=== PATIENT | female | born 1935 | race Hispanic/Latino ===

== ENCOUNTER 2017-10-02 10:31 | Day surgery (SDC) | payer OTHER ==
[2017-10-02 10:42] VITALS: BMI 27.2
[2017-10-02] MEDS ORDERED: Sodium Chloride 0.9% 1,000 ML IV STA (10:51)
--- NOTE | 2017-10-02 10:53 | ED PDOC ---
Arrival/HPI - General Time Seen by Provider: 10/02/17 10:42 Historian: Patient - History of Present Illness Narrative History of Present Illness (Text): 10/02/17 10:53 is a 81 year old female whose past medical history includes hypertension, depression, arthritis, and kidney stones, who presents to the Emergency department with her complaining of left side kidney stones with associated left sided back pain, which started yesterday. Patient is visiting from [place] on a cruise. She reports that her pain is from kidney stones explaining that she has had kidney stones in the past, which caused her similar pain. She describes the pain as severe. Patient reports increased urinary frequency, and yesterday found blood in her urine. Denies any blood in her stool. Of note she takes Tramadol for Arthritis pain. Time/Duration: 24 hours Symptom Onset: Sudden Symptom Course: Unchanged Severity Level: Severe Context: Other (Cruise) Past Medical History - Provider Review Nursing Documentation Reviewed: Yes Family/Social History - Physician Review Nursing Documentation Reviewed: Yes Family/Social History: No Known Family HX Allergies/Home Meds Allergies/Adverse Reactions: Allergies No Known Allergies Allergy (Verified 10/02/17 10:42) Home Medications: Home Meds Medication Instructions Recorded Confirmed Doxazosin [Cardura] 10/02/17 FLUoxetine [Prozac] 10/02/17 Mirtazapine [Remeron] 30 mg PO 10/02/17 Nadolol/Bendroflumethiazide 10/02/17 [Corzide 40-5 Tablet] Omeprazole [Omeprazole] 10/02/17 Propranolol [Inderal LA] 10/02/17 Ramipril [Altace] 10/02/17 traMADol [Ultram] 10/02/17 Review of Systems - Physician Review All systems were reviewed & negative as marked: Yes - Review of Systems Gastrointestinal: absent: Abdominal Pain Genitourinary Female: Frequency, Hematuria Musculoskeletal: Back Pain Physical Exam Vital Signs Reviewed: Yes Vital Signs Temp Pulse Resp BP Pulse Ox 10/02/17 14:55 97.9 F 63 20 162/100 H 96 10/02/17 13:30 98.1 F 62 19 153/66 H 95 10/02/17 10:49 97 H 18 107/51 L 107 H 10/02/17 10:36 98.3 F 55 L 18 107/51 L 96 Temperature: Afebrile Blood Pressure: Normal Pulse: Bradycardic Respiratory Rate: Normal Appearance: Positive for: Well-Appearing Mental Status: Positive for: Alert and Oriented X 3 - Systems Exam Head: Present: Atraumatic, Normocephalic Pupils: Present: PERRL Extroacular Muscles: Present: EOMI Conjunctiva: Present: Normal Mouth: Present: Moist Mucous Membranes Neck: Present: Normal Range of Motion Respiratory/Chest: Present: Clear to Auscultation, Good Air Exchange. No: Respiratory Distress, Accessory Muscle Use Cardiovascular: Present: Regular Rate and Rhythm, Normal S1, S2. No: Murmurs Abdomen: No: Tenderness, Distention, Peritoneal Signs Back: Present: CVA Tenderness (Left sided CVA tenderness) Upper Extremity: Present: Normal Inspection. No: Cyanosis, Edema Lower Extremity: Present: Normal Inspection. No: Edema Neurological: Present: GCS=15, CN II-XII Intact, Speech Normal Skin: Present: Warm, Dry, Normal Color. No: Rashes Psychiatric: Present: Alert, Oriented x 3, Normal Insight, Normal Concentration Medical Decision Making ED Course and Treatment: 10/02/17 10:53 Impression: Patient is 81 year old female who is complaining of left sided back pain which she believes is due to kidney stones. Differential Diagnosis included but are not limited to: Kidney stones vs. Back strain Plan: --Abdominal and Pelvic CT without PO or IV contrast --EKG --Toradol --IV fluids --Urinalysis -- Reassess and disposition Progress Notes: 10/02/17 10:54 EKG shows sinus bradycardia at 58 BPM with normal axis and intervals. Interpreted by me. 10/02/17 12:[address] without contrast: Creator : Alessandro Glass MD IMPRESSION: Moderate hydronephrosis with perinephric swelling and hydroureter to the level of the urinary bladder with a 6 millimeter obstructive calculus at the left UVJ. 10/02/17 13:19 Case was discussed with Dr. Morse, Urology, who will come in to do a uretal stent. Patient has been NPO since yesterday. UA reviewed. Levaquin was given on cruiseship. Patient is being admitted to [facility] for the procedure and Dr. Morse will rx antibiotics. Given Rocephin IV as per his recommendation. - Lab Interpretations Lab Results: 10/02/17 10:45 10/02/17 10:45 Lab Results 10/02/17 12:20: Urine Color Yellow, Urine Appearance Cloudy, Urine pH 6.0, Ur Specific [place] >= 1.030, Urine Protein 30 H, Urine Glucose (UA) Negative, Urine Ketones Trace H, Urine Blood Large H, Urine Nitrate Negative, Urine Bilirubin Negative, Urine Urobilinogen 0.2, Ur Leukocyte Esterase Small H, Urine RBC Tntc, Urine WBC 5 - 10, Ur Epithelial Cells Many, Urine Bacteria Many 10/02/17 10:45: Sodium 142, Potassium 4.1, Chloride 105, Carbon Dioxide 23, Anion Gap 18, BUN 40 H, Creatinine 1.2, Est GFR ( Amer) 52, Est GFR (Non- Af Amer) 43, Random Glucose 99, Calcium 10.0, Total Bilirubin 0.8, AST 30, ALT 31, Alkaline Phosphatase 63, Total Protein 7.4, Albumin 4.2, Globulin 3.2, Albumin/Globulin Ratio 1.3 10/02/17 10:45: WBC 7.8, RBC 4.03, Hgb 13.1, Hct 37.1, MCV 92.1, MCH 32.5, MCHC 35.3, RDW 12.6, Plt Count 200, MPV 10.6, Gran % 61.9, Lymph % (Auto) 27.3, Mineral % (Auto) 10.4 H, Eos % (Auto) 0.1 L, Baso % (Auto) 0.3, Gran # 4.83, Lymph # ( Auto) 2.1, Mineral # (Auto) 0.8 H, Eos # (Auto) 0.0, Baso # (Auto) 0.02 I have reviewed the lab results: Yes - RAD Interpretation Radiology Orders: 10/02/17 10:52 ABD & PELVIS W/O PO OR IV CONT [CT] Stat 10/02/17 15:21 FLUOROSCOPY UP TO 1 HOUR [RAD] Routine Brazing Machine Operator Automatic: Radiologist - EKG Interpretation Interpreted by ED Physician: Yes Type: 12 lead EKG - Medication Orders Current Medication Orders: Sodium Chloride (Sodium Chloride 0.9%) 1,000 mls @ 100 mls/hr IV .Q10H STA Stop: 10/02/17 20:50 Last Admin: 10/02/17 11:18 Dose: 100 mls/hr eMAR Start Stop Document 10/02/17 11:18 EAR (Rec: 10/02/17 11:19 EAR [id number]) Intravenous Solution Start Date 10/02/17 Start Time 11:19 End Date 10/02/17 End time 12:20 Total Infusion Time 61 Ciprofloxacin (Cipro 200mg/100ml D5w) 100 mls @ 67 mls/hr IVPB Q12 GARRY PRN Reason: Protocol Stop: 10/02/17 23:30 Discontinued Medications Ceftriaxone Sodium (Rocephin 1 Gram Ivpb) 1 gm in 100 mls @ 200 mls/hr IVPB STAT STA PRN Reason: Protocol Stop: 10/02/17 13:52 Last Admin: 10/02/17 13:35 Dose: 200 mls/hr eMAR Start Stop Document 10/02/17 13:35 COMMUNICATIONS ADMINISTRATOR (Rec: 10/02/17 13:35 COMMUNICATIONS ADMINISTRATOR [id number]) Intravenous Solution Start Date 10/02/17 Start Time 13:35 End Date 10/02/17 End time 14:05 Total Infusion Time 30 Ketorolac Tromethamine (Toradol) 30 mg IVP STAT STA Stop: 10/02/17 10:52 Last Admin: 10/02/17 11:18 Dose: 30 mg MAR Pain Assessment Document 10/02/17 11:18 EAR (Rec: 10/02/17 11:18 EAR [id number]) Pain Reassessment Is this a pain reassessment? Yes Sleep Is patient sleeping during reassessment? No Presence of Pain Presence of Pain No Pain Scale Used Pain Scale Used Numeric Location Left, Right or Bilateral Left IVP Administration Document 10/02/17 11:18 EAR (Rec: 10/02/17 11:18 EAR [id number]) Charges for Administration # of IVP Administrations 1 Magnesium Citrate (Citrate Of Mag) 300 ml PO ONCE ONE Stop: 10/02/17 15:24 - Scribe Statement The provider has reviewed the documentation as recorded by the Scribe Chris Mckeon Provider Scribe Attestation: All medical record entries made by the Scribe were at my direction and personally dictated by me. I have reviewed the chart and agree that the record accurately reflects my personal performance of the history, physical exam, medical decision making, and the department course for this patient. I have also personally directed, reviewed, and agree with the discharge instructions and disposition. Disposition/Present on Arrival - Present on Arrival Any Indicators Present on Arrival: No - Disposition Have Diagnosis and Disposition been Completed?: Yes Diagnosis: Kidney stone Disposition: HOSPITALIZED Disposition Time: 12:52 Patient Plan: Admission Condition: GOOD
[2017-10-02 11:07] LABS: BASO # 0.02 K/mm3 (0.0-2.0); BASO % 0.3 % (0.0-3.0); EOS % 0.1 % (1.5-5.0); GRAN # 4.83 (1.4-6.5); GRAN % 61.9 % (50.0-68.0); HEMOGLOBIN 13.1 g/dL (12.0-16.0); LYMPH # 2.1 (1.2-3.4); LYMPH % 27.3 % (22.0-35.0); MEAN CELL VOLUME 92.1 fl (80.0-105.0); MEAN CORPUSCULAR HEMOGLOBIN 32.5 pg (25.0-35.0); MEAN CORPUSCULAR HGB CONC 35.3 g/dl (31.0-37.0); MEAN PLATELET VOLUME 10.6 fl (7.0-11.0); MONO # 0.8 (0.1-0.6); MONO % 10.4 % (1.0-6.0); RBC 4.03 10^6/uL (3.5-6.1); RED CELL DISTRIBUTION WIDTH 12.6 % (11.5-14.5); WHITE BLOOD COUNT 7.8 10^3/ul (4.5-11.0)
[2017-10-02 11:17] LABS: ALB/GLOB RATIO 1.3 (1.1-1.8); ALBUMIN 4.2 g/dL (3.0-4.8)
--- NOTE | 2017-10-02 11:40 | CT ---
PROCEDURE: CT Abdomen and Pelvis without intravenous contrast HISTORY: low back pain r/o kidney stone COMPARISON: None. TECHNIQUE: Technique. Contrast dose: Radiation dose: Total exam DLP = mGy-cm. This CT exam was performed using one or more of the following dose reduction techniques: Automated exposure control, adjustment of the mA and/or kV according to patient size, and/or use of iterative reconstruction technique. FINDINGS: LOWER THORAX: Unremarkable. LIVER: 7 mm left hepatic cyst. No gross lesion or ductal dilatation. GALLBLADDER AND BILE DUCTS: Unremarkable. PANCREAS: Unremarkable. No gross lesion or ductal dilatation. SPLEEN: Unremarkable. ADRENALS: Unremarkable. No mass. KIDNEYS AND URETERS: Moderate hydronephrosis with perinephric swelling and hydroureter to the level of the urinary bladder with a 6 millimeter obstructive calculus at the left UVJ. 11 millimeter nonobstructive calculus in the lower pole of the left kidney. VASCULATURE: Unremarkable. No aortic aneurysm. BOWEL: Unremarkable. No obstruction. No gross mural thickening. APPENDIX: Unremarkable. Normal appendix. PERITONEUM: Unremarkable. No free fluid. No free air. LYMPH NODES: Unremarkable. No enlarged lymph nodes. BLADDER: Unremarkable. REPRODUCTIVE: Unremarkable. BONES: No acute fracture. OTHER FINDINGS: None. IMPRESSION: Moderate hydronephrosis with perinephric swelling and hydroureter to the level of the urinary bladder with a 6 millimeter obstructive calculus at the left UVJ.
[2017-10-02 12:37] LABS: URINE BILIRUBIN NEGATIVE (NEGATIVE); URINE BLOOD LARGE (NEGATIVE); URINE GLUCOSE (UA) NEGATIVE (NEGATIVE); URINE LEUKOCYTE ESTERASE SMALL Leu/uL (NEGATIVE); URINE PROTEIN 30 mg/dL (<30 mg/dL); URINE UROBILINOGEN 0.2 E.U./dL (<1 E.U./dL)
[2017-10-02 12:40] LABS: URINE APPEARANCE CLOUDY (CLEAR); URINE COLOR YELLOW (YELLOW)
--- NOTE | 2017-10-02 12:58 | CARD ---
APPROVED REPORT EKG Measurement Heart [id number] ID [id number] <Conclusion> Sinus bradycardia Otherwise normal ECG
[2017-10-02 13:05] LABS: URINE BACTERIA MANY (NEG); URINE EPITHELIAL CELLS MANY /hpf (0-5); URINE RBC TNTC /hpf (0-2)
[2017-10-02] MEDS ORDERED: Iohexol 240 (50 ml) ONE (13:21)
[2017-10-02] MEDS ORDERED: cefTRIAXone (Rocephin) 1 gm Inj ONE (13:21)
[2017-10-02] MEDS ORDERED: Lidocaine 2% Jelly (Uro-Jet) ONE (13:21)
[2017-10-02] MEDS ORDERED: cefTRIAXone 1 gm 1 GM/100 ML BAG IVPB STA (13:23)
[2017-10-02] MEDS ORDERED: Propofol 10 mg/ml Inj (20 ML) ONE (15:00)
[2017-10-02] MEDS ORDERED: Lidocaine 2% Inj (20ml) ONE (15:02)
[2017-10-02] MEDS ORDERED: Magnesium Citrate Oral SOL (300 ml) PO ONE (15:23)
[2017-10-02] MEDS ORDERED: HYDROmorphone 0.5 mg/0.5 ml ISec IVP PRN (16:09)
[2017-10-02] MEDS ORDERED: Sodium Chloride 0.9% 1,000 ML IV SCH (16:15)
[2017-10-02] MEDS ORDERED: Pneumococcal 23-Valent Vaccine IM ONE (20:46)
[2017-10-02] MEDS ORDERED: PARACETAMOL PO SCH (22:00)
[2017-10-02] MEDS ORDERED: [UNRECOGNIZED DRUG - OTHER] PO SCH (22:00)
[2017-10-02] MEDS ORDERED: Ciprofloxacin 200mg/100ml D5W 100 ML IVPB SCH (22:00)
[2017-10-02 22:28] VITALS: PULSE 65
[2017-10-03 07:38] VITALS: BP 121/62; RESP 18; TEMP 98.5; O2SAT 98
[2017-10-03] MEDS ORDERED: [UNRECOGNIZED DRUG - OTHER] PO SCH (10:00)
[2017-10-03] MEDS ORDERED: OMEPRAZOLE 20 MG PO SCH (10:00)
[2017-10-03] MEDS ORDERED: cefTRIAXone 1 gm 1 GM/100 ML BAG IVPB ONE (10:00)
[2017-10-03] MEDS ORDERED: Propranolol 80 mg ER Cap PO SCH (10:00)
--- NOTE | 2017-10-03 16:03 | PN ---
DATE: 10/03/2017 UROLOGY IMMEDIATE POSTOP NOTE The patient is status post cystoscopy. Vital signs are within normal limits. The patient is feeling much better, much less back pain. All within normal limits. A little blood-tinged urine is noted. The patient is feeling much better in terms of pain. The Urology plan is as follows; 1. We are going to admit the patient overnight. Antibiotics provided. 2. The next step for the patient will be discharge home. She will fly to [place]. 3. urologist there. I have given the patient and her the actual films from procedure. recommendations from Urology standpoint would either be ureteroscopy, lithotripsy or shockwave lithotripsy. At this point, she will be safe to fly. Discussed with the patient at great length. Bob Morse MD
--- NOTE | 2017-10-03 21:15 | HP ---
UROLOGY EMERGENCY ADMISSION REASON FOR ADMISSION: Severe renal colic. HISTORY OF PRESENT ILLNESS: A very pleasant lady. She is 81 years old. She is on a cruise actually and she had to leave the cruise because she was feeling so sick. She is nauseous, vomiting, abdominal pain, severe pain. We found here in the emergency room a severe hydronephrosis secondary to a distal ureteral obstruction. Now, she also has a secondary stone up in her kidney. See the plan listed above. PAST MEDICAL HISTORY AND SURGICAL HISTORY: As listed on the chart. No history of an ID or CVA. SOCIAL HISTORY: She is here with her . She is for almost 60 years. They are visiting from [place]. REVIEW OF SYSTEMS: Otherwise unremarkable review of systems. MEDICATIONS: See chart. ALLERGIES: . PHYSICAL EXAMINATION: GENERAL: female. She is actually lying there fairly uncomfortable on the gurney. VITAL SIGNS: Noted to be within relatively normal limits. LUNGS: Clear. HEART: Normal S1 and S2. ABDOMEN: Overall soft. There is no abdominal distension. No real CVA tenderness appreciated. LABORATORY DATA: Noted on the chart, that is all in the computer. The CAT scan is noted. Again, significantly, there is severe left hydronephrosis secondary to distal ureteral stone. DIAGNOSES: Urolithiasis, hematuria, severe renal colic, and severe hydronephrosis. PLAN: As follows: This is a pleasant 81-year-old lady. This is an emergency admission. We are going to plan for a cysto, stent insertion. I did discuss other options. Given her age, her medical condition, and her current status that she is off a boat and she is traveling, we are going to bring her in as an emergency. It is an absolute emergency. I did discuss other possibility. We discussed open surgery. We discussed nephrostomy tubes. We discussed not treating and sending her home without treatment. That would be against my recommendations. At this point, it is a relative emergency. Bring her to the hospital and the plan is as follows: 1. We will do a cystoscopy and we will insert a stent. I did discuss the possibilities for ureteroscopy, laser, but at this point, I just wanted to decompress her system and make her feel better. Then, further plans will follow. I discussed with the and the patient, risk, benefits, and treatment alternatives and we are going to plan to proceed. Bob Morse MD
--- NOTE | 2017-10-04 10:34 | RAD ---
PROCEDURE: Intraoperative Fluoroscopy. HISTORY: CYSTO / RETROGRADE PYELOGRAM / STENT INSERTION (LEFT) FINDINGS: Fluoroscopic assistance was provided. Fluoroscopy time = 22.7 seconds. Radiation dose = 7.44 mGy. Please refer to the operative report from JENNIFER Zacarias, , MD LISA.
--- NOTE | 2017-10-04 12:16 | OP ---
PROCEDURE DATE: 10/02/2017 UROLOGY OPERATIVE REPORT PREOPERATIVE DIAGNOSES: Severe renal colic, left hydronephrosis, distal ureteral stone. POSTOPERATIVE DIAGNOSES: Severe renal colic, left hydronephrosis, distal ureteral stone, large cystocele is noted. A grade 2 to 3 cystocele is noted (see the body of the report for further details) and also there are nonobstructing stones as well. But the main obstruction is in the distal ureter. There are some beautiful films taken. PROCEDURES PERFORMED: Examination under anesthesia, cystoscopy, left retrograde pyelogram, insertion of left double-J stent. SURGEON: Jeyson Morse M.D. COMPLICATIONS: There were no complications. BLOOD LOSS: Less than 10 mL. At the termination of the procedure, the patient has a well-placed double-J stent in the kidney and the bladder, it is actually little high in the kidney, it is up in the upper pole of the kidney but it is well placed and it is curled nicely. Although it is not in the renal pelvis, just a little bit high up. INDICATIONS: See history and physical for further details. I do want to just mention as very pleasant lady 81 years old with acute obstruction with severe pain, about to travel back to her country, did not feel comfortable. I did not feel comfortable recommending travel without some intervention, so we offered the above treatment. UROLOGY OPERATIVE FINDINGS: So, there is a large cystocele and there is a very distal ureteral stone that is fairly large and causing obstruction to the point that it made even manipulating and putting the stent in somewhat difficult. It is very impacted. But, we were able to negotiate a wire pass there and then subsequently we were able to get the stent up to the kidney and drained the kidney. DESCRIPTION OF PROCEDURE: After obtaining informed consent, the patient was placed on the table. Routine monitors were placed. Time-out was called to confirm the patient positioning. Antibiotic prophylaxis was used. We introduced the cystoscope via the urethra. Actually, the bladder is descended so greatly. I actually used a sponge on a stick to push up on the bladder to make the ureteral orifice visible; otherwise, it was down below the pubic bone and very difficult to access and see. With gentle sponge on the stick, I was able to push it back into our field. Now, I identified the ureteral orifice (you could see the films, the final film where the stent is in good location, basically the ureteral double-J stent is below the pubic bone) and did a retrograde pyelogram. See the final films. Anyway, we kept working. A retrograde pyelogram was performed. It showed massive hydronephrosis. I passed the wire gently with a little difficulty. I needed to use the open-ended wire technique to get pass the distal ureteral stone. Once we did this, the rest of the ureter went well. I put the open-ended ureteral catheter pass the stone, multiple pictures were taken and saved. At this point, we have put the wire up to the kidney. Once we did this, we confirmed its position with fluoroscopic imaging and put a double-J stent in and confirm its position. We entered the bladder. I just want to make clear, the patient has a large cystocele. She has a distal ureteral stone. My thought after this treatment is that next treatment for her will be to have a ureteroscopy, laser lithotripsy which I explained to the patient, see in the next note. We should get down with her urologist in [place]. The patient tolerated the procedure well without any other complications. Bob Morse MD
== END 2017-10-03 13:41 | disposition home or self-care (01) ==
LOC: ED 10:31 → SDS 14:29 → 5RNO 18:35 → SDS 10-03 13:41
PROVIDERS: ATTEND Urology
DX: N13.2 Hydronephrosis with renal and ureteral calculous obstruction (principal); N81.10 Cystocele, unspecified; F32.9 Major depressive disorder, single episode, unspecified; I10 Essential (primary) hypertension
CPT/HCPCS: 52332; 74176; 80053; 81001; 85025; 87086; 93005; 96361; 96365; 96375; 99285; C1758 ×2; C1769; C2617; J0696 ×2; J0744; J1170; J1885; J2704; J3010; J7030 ×2; J7120; Q9966